=== PATIENT | male | born 1990 | race Caucasian/White ===

== ENCOUNTER 2017-08-08 12:21 | Emergency (ER) | payer BC ==
[~2017-08-08] VITALS: Ht 188 cm; Wt 100.9 kg
[2017-08-08 12:24] VITALS: BP 143/88; PULSE 98; TEMP 37.2; O2SAT 96; Ht 188 cm; Wt 100.9 kg
[2017-08-08] MEDS ORDERED: MIRALAX PO (12:51)
[2017-08-08] MEDS ORDERED: METH10CO2 PO (12:51)
[2017-08-08] MEDS ORDERED: POLY335019 PO (12:52)
--- NOTE | 2017-08-08 13:14 | DIAGNOSTIC IMAGING REPORT ---
KUB CLINICAL HISTORY: 27 years-old Male presenting with constipation. TECHNIQUE: Single supine view of the abdomen was obtained. COMPARISON: None. FINDINGS: Marked stool burden throughout the colon. Small bowel is nondistended. No gross evidence of bowel obstruction. No gross pneumoperitoneum. Allowing for bowel gas and stool, no calcifications to suggest nephrolithiasis. Osseous structures normal. Lung bases clear. IMPRESSION: 1. Marked stool burden consistent with constipation. Electronically signed by: Hussain Doyle M.D. 08/08/2017 1:13 PM Dictated Date/Time: 08/08/2017 1:12 PM
--- NOTE | 2017-08-08 15:33 | EMERGENCY ROOM VISIT NOTE ---
History Report prepared by Ivy: Dave Yates Under the Supervision of: Dr. Garth Ash D.O. First contact with patient: 12:28 Chief Complaint: CONSTIPATION Stated Complaint: IMPACTED BOWEL MOVEMENT Nursing Triage Summary: patient c/o "impacted bowel movement. and I am afraid at this point." patient states last BM 3 days ago. patient states he is on the methadone program. patient receives once a day. History of Present Illness The patient is a 27 year old male who presents to the Emergency Room with complaints of constipation. The patient had a bowel movement 3 days ago. The patient took laxatives and had a partial bowel movement today and tried to pull out the remaining stool without success. The patient states he also has a rectal hemorrhoid that is currently not giving him any problems. Of note, the patient goes to a methadone clinic with Dr. Terry. Source of History: patient Onset: 3 days ago Position: abdomen Timing: constant Associated Symptoms: + abdominal pain Note: Pt reports he hasn't had a bowel movement in 3 days. Review of Systems See HPI for pertinent positives & negatives. A total of 10 systems reviewed and were otherwise negative. Past Medical & Surgical Medical Problems: (1) Acute hemorrhoid Social History Smoking Status: Current Every Day Smoker Housing Status: lives with family Current/Historical Medications Scheduled Methadone Hcl (Methadose), 49 MG PO DAILY Scheduled PRN Polyethylene Glycol 3350 (Miralax), 17 GM PO DAILY PRN for Constipation Allergies Coded Allergies: No Known Allergies (Unverified , 07/26/16) Physical Exam Vital Signs Date Time Temp Pulse Resp B/P (MAP) Pulse Ox O2 Delivery O2 Flow Rate FiO2 08/08/17 12:24 37.2 98 18 143/88 96 Room Air Physical Exam CONSTITUTIONAL/VITAL SIGNS: Reviewed / noted above. GENERAL: Non-toxic in appearance. INTEGUMENTARY: Warm, dry, and [place]. HEAD: Normocephalic. EYES: without scleral icterus or trauma. ENT/OROPHARYNX: clear and moist. LYMPHADENOPATHY/NECK: Is supple without lymphadenopathy or meningismus. RESPIRATORY: Lungs clear and equal. CARDIOVASCULAR: Regular rate and rhythm. GI/ABDOMEN: Soft and nontender. No organomegaly or pulsatile mass. No rebound or guarding. Normal bowel sounds. EXTREMITIES: Warm and well perfused. BACK: No CVA tenderness. NEUROLOGICAL: Intact without focal deficits. PSYCHIATRIC: normal affect. MUSCULOSKELETAL: Normally developed with good muscle tone. Medical Decision & Procedures ER Provider Diagnostic Interpretation: Radiology results as stated below per my review and radiologist interpretation: KUB CLINICAL HISTORY: 27 years-old Male presenting with constipation. TECHNIQUE: Single supine view of the abdomen was obtained. COMPARISON: None. FINDINGS: Marked stool burden throughout the colon. Small bowel is nondistended. No gross evidence of bowel obstruction. No gross pneumoperitoneum. Allowing for bowel gas and stool, no calcifications to suggest nephrolithiasis. Osseous structures normal. Lung bases clear. IMPRESSION: 1. Marked stool burden consistent with constipation. Electronically signed by: Hussain Doyle M.D. 08/08/2017 1:13 PM Dictated Date/Time: 08/08/2017 1:12 PM ED Course 1228: Previous medical records were reviewed. The patient was evaluated in room B5. A complete history and physical examination was performed. 1306: The patient was administered an enema. 1400: The patient eloped without administering the enema per the nurse. Medical Decision Differential considered: pancreatitis, hepatitis, or acute cholecystitis, AAA, UTI, pyelonephritis, kidney stones, appendicitis, diverticulitis, shingles, bowel obstruction mesenteric ischemia, intussusception,hernia, testicular torsion. This is a 27-year-old male who presents to the ED with a chief complaint of obstipation. The patient states that he has not had a bowel movement for 3 days. He is chronically on methadone. He states that he attempted to move his bowels this morning and was unable to do so. He has no other complaints. No abdominal pains. No chest pains or shortness of breath. No fevers. KUB suggest constipation. Enema was provided. The nurse stated that they instructed the patient on the enema and he went to the bathroom with it. When they went to check on him, he was no longer in the emergency department. It appears the patient eloped. It is unclear if he moved his bowels. Medication Reconcilliation Current Medication List: was personally reviewed by me Blood Pressure Screening Patient's blood pressure: Elevated blood pressure Blood pressure disposition: Elevated BP felt to be situational Impression Primary Impression: Constipation Scribe Attestation The scribe's documentation has been prepared under my direction and personally reviewed by me in its entirety. I confirm that the note above accurately reflects all work, treatment, procedures, and medical decision making performed by me. Departure Information Dispostion Other (Eloped) Referrals No Doctor, Assigned (PCP) Patient Instructions My [facility]
== END 2017-08-08 14:16 | disposition left against medical advice (07) ==
LOC: C.EDB 12:22
DX: K59.00 Constipation, unspecified (principal); K64.9 Unspecified hemorrhoids; F11.90 Opioid use, unspecified, uncomplicated; Z79.899 Other long term (current) drug therapy; F17.200 Nicotine dependence, unspecified, uncomplicated